=== PATIENT | female | born 1965 | race Hispanic/Latino ===

== ENCOUNTER 2021-02-10 15:41 | Emergency (ER) | payer MEDICAID ==
[~2021-02-10] VITALS: Ht 170.2 cm; Wt 72.6 kg
[2021-02-10] MEDS ORDERED: LORAZEPAM 2 MG/ML 1 ML VIAL IVP ONE (16:00)
[2021-02-10 16:16] LABS: BASOPHILS % (AUTO) 0.8 % (0.0-5.0); HEMATOCRIT 40.6 % (36-48); LYMPHOCYTES % (AUTO) 18.1 % (21.0-51.0); MEAN CORPUSCULAR HEMOGLOBIN 29.9 pg (27.0-33.0); MEAN CORPUSCULAR VOLUME 90.6 fL (79-99); MONOCYTES % (AUTO) 7.4 % (3.0-13.0); NEUTROPHILS % (AUTO) 71.9 % (40.0-77.0); PLATELET COUNT (AUTO) 324 K/uL (130-400); RED BLOOD CELL COUNT(AUTO) 4.48 MIL/uL (4.00-5.50); RED CELL DISTRIBUTION WIDTH 12.6 % (11.0-15.5); WHITE BLOOD COUNT (AUTO) 10.6 K/uL (4.8-10.8)
[2021-02-10] MEDS ORDERED: TETANUS/DIPHTHERIA TOXOID [ADULT] 0.5 ML VIAL IM ONE (16:30)
[2021-02-10 16:36] LABS: CREATININE 0.7 mg/dL (0.5-1.5); POTASSIUM 3.6 mmol/L (3.5-5.1)
[2021-02-10 16:39] LABS: MAGNESIUM 2.2 mg/dL (1.80-2.40); PHENYTOIN (DILANTIN) 5.8 mcg/mL (10.0-20.0)
[2021-02-10 16:41] LABS: ALBUMIN 3.8 g/dL (3.5-5.0); BILIRUBIN,TOTAL 0.2 mg/dL (0.2-1.0); TOTAL PROTEIN, SERUM 8.2 g/dL (6.0-8.3)
[2021-02-10] MEDS ORDERED: PHENYTOIN SODIUM INJ SCH (17:00)
[2021-02-10] MEDS ORDERED: PHENYTOIN 100MG (50MG/ML) INJ 100 MG/2 ML ML IV SCH (17:00)
[2021-02-10] MEDS ORDERED: [UNRECOGNIZED DRUG - OTHER] INJ SCH (17:00)
[2021-02-10 19:58] VITALS: BP 127/65
[2021-02-10] MEDS ORDERED: LEVETIRACETAM 1,500 MG in 0.9%NACL 100ML 100 ML IV SCH (22:00)
== END 2021-02-10 23:46 ==
LOC: EDH 15:41
DX: S00.11XA Contusion of right eyelid and periocular area, initial encounter (principal); S00.83XA Contusion of other part of head, initial encounter; S00.211A Abrasion of right eyelid and periocular area, initial encounter; G40.909 Epilepsy, unspecified, not intractable, without status epilepticus; W18.39XA Other fall on same level, initial encounter; Y93.89 Activity, other specified; Y92.89 Other specified places as the place of occurrence of the external cause; Y99.8 Other external cause status
CPT/HCPCS: 36415; 70450; 70486; 71045; 72125; 80053; 80185; 83735; 85025; 86140; 90471; 90714; 93005 ×2; 96365; 96367; 96375; 99285; J1165; J1953; J2060